=== PATIENT | male | born 1990 ===

== ENCOUNTER 2018-10-05 19:18 | Emergency (ER) ==
--- NOTE | 2018-10-05 20:27 | RADIOLOGY REPORT (SQ) ---
EXAM DESCRIPTION: XR FOOT 3 OR MORE VIEWS COMPLETED DATE/TME: 10/05/2018 00:00 CLINICAL HISTORY: 28 years, Male, scaffolding collapsed, landed on toes. COMPARISON: None. NUMBER OF VIEWS: Three TECHNIQUE: Frontal, oblique, and lateral radiographs of the left foot were obtained. LIMITATIONS: None. FINDINGS: The first distal phalanx appears superiorly dislocated relative to its expected location. In addition, there is an ossific fragment located just inferior to the first distal phalangeal base on the lateral projection, possibly indicating a fracture fragment of uncertain origin origin. Associated adjacent soft tissue swelling is noted. Os navicular and os peroneum are noted. IMPRESSION: Dorsal dislocation of the first distal phalanx, as above described. Adjacent ossific fragment could indicate an associated displaced fracture fragment. copyright 2010 [employer]- All Rights Reserved
== END 2018-10-05 20:45 | disposition left against medical advice (07) ==
LOC: ER 19:18
DX: Z53.21 Procedure and treatment not carried out due to patient leaving prior to being seen by health care provider (principal)